=== PATIENT | male | born 1990 | race Caucasian/White ===

== ENCOUNTER 2021-03-04 17:06 | Inpatient (IN) | payer SELFPAY ==
[~2021-03-04] VITALS: Ht 175.3 cm; Wt 77.1 kg
[2021-03-04] MEDS ORDERED: SODIUM CHLORIDE 0.9% 1000ML 1,000 ML IV STA (17:32)
[2021-03-04] MEDS ORDERED: ONDANSETRON HCL INJ 2MG/ML 2ML 2 MG/ML VIAL IV STA (17:32)
[2021-03-04] MEDS ORDERED: Morphine 4mg Syringe 4 MG/ML INJ IV STA (17:32)
[2021-03-04 17:54] LABS: BASOPHILS % 0.2 % (0.0-1.0); EOSINOPHILS # (AUTO) 0.1 (0.0-0.4); EOSINOPHILS % 0.4 % (0.0-6.0); HEMATOCRIT 44.7 % (38.2-49.6); HEMOGLOBIN 15.6 g/dL (14.0-18.0); LYMPHOCYTES # (AUTO) 1.3 (1.0-3.2); LYMPHOCYTES % 5.2 % (18.0-39.1); MEAN CORPUSCULAR HEMOGLOBIN 30.9 pg (28-32); MEAN CORPUSCULAR HGB CONC 34.9 g/dL (31-35); MEAN CORPUSCULAR VOLUME 88.5 fL (81-99); MONOCYTES % 7.9 % (4.4-11.3); NEUTROPHILS % 85.5 % (38.7-80.0); PLATELET COUNT 201 x10e3/uL (140-360); RED BLOOD COUNT 5.05 x10e6/uL (4.3-5.7); RED CELL DISTRIBUTION WIDTH 12.1 % (11.7-14.4)
[2021-03-04] MEDS: PIPERACILLIN/TAZOBACTAM 3.375 GM in SODIUM CHLORIDE 0.9% 50ML 50 ML IV SCH (18:13)
[2021-03-04 18:15] LABS: ALBUMIN 3.7 g/dL (3.5-5.0); ALBUMIN/GLOBULIN RATIO 0.9 (0.8-2.0); ANION GAP 19.3 mmol/L (8-16); CALCIUM 9.8 mg/dL (8.4-10.2); CREATININE, SERUM 1.29 mg/dL (0.72-1.25); POTASSIUM 4.3 mmol/L (3.5-5.1)
[2021-03-04] MEDS ORDERED: ACETAMINOPHEN 325 MG TAB ONE (18:25)
[2021-03-04] MEDS ORDERED: ACETAMINOPHEN 325 MG TAB PO ONE (18:30)
[2021-03-04 20:00] VITALS: BP 140/100
[2021-03-04] MEDS: Morphine 4mg Syringe 4 MG/ML INJ IV PRN (20:20)
[2021-03-04] MEDS: ONDANSETRON HCL INJ 2MG/ML 2ML 2 MG/ML VIAL IV PRN (20:21)
[2021-03-04] MEDS: SODIUM CHLORIDE 0.9% 1000ML 1,000 ML IV SCH (20:21)
[2021-03-04 21:25] VITALS: BP 131/98
[2021-03-04] MEDS ORDERED: SODIUM CHLORIDE 0.9% 50ML 50 ML ONE (22:50)
[2021-03-04] MEDS ORDERED: IOPAMIDOL 370 MG/ML 200 ML INFUS..BTL INJ ONE (22:51)
[2021-03-05] VITALS: BP 140/100
[2021-03-05] MEDS: PIPERACILLIN/TAZOBACTAM 3.375 GM in SODIUM CHLORIDE 0.9% 50ML 50 ML IV SCH ×4 (01:00→18:14)
[2021-03-05] MEDS: Morphine 4mg Syringe 4 MG/ML INJ IV PRN (02:05)
[2021-03-05] MEDS: ONDANSETRON HCL INJ 2MG/ML 2ML 2 MG/ML VIAL IV PRN (02:06)
[2021-03-05] MEDS: SODIUM CHLORIDE 0.9% 1000ML 1,000 ML IV SCH ×3 (02:15→18:15)
[2021-03-05] MEDS ORDERED: ADDERALL 30 MG30 MG PO (04:41)
[2021-03-05] MEDS ORDERED: ACETAMINOPHEN 1000 MG/100 ML IV PRN (04:45)
[2021-03-05 04:48] LABS: BASOPHILS % 0.1 % (0.0-1.0); HEMOGLOBIN 13.3 g/dL (14.0-18.0); LYMPHOCYTES # (AUTO) 1.2 (1.0-3.2); MEAN CORPUSCULAR HEMOGLOBIN 30.6 pg (28-32); MEAN CORPUSCULAR HGB CONC 34.1 g/dL (31-35); MEAN CORPUSCULAR VOLUME 89.7 fL (81-99); MONOCYTES # (AUTO) 1.5 (0.2-0.8); MONOCYTES % 8.9 % (4.4-11.3); NEUTROPHILS # (AUTO) 13.7 (2.1-6.9); NEUTROPHILS % 83.1 % (38.7-80.0); PLATELET COUNT 151 x10e3/uL (140-360); RED BLOOD COUNT 4.35 x10e6/uL (4.3-5.7); RED CELL DISTRIBUTION WIDTH 11.9 % (11.7-14.4)
[2021-03-05 05:14] LABS: ALBUMIN 2.9 g/dL (3.5-5.0); ALBUMIN/GLOBULIN RATIO 0.7 (0.8-2.0); CALCIUM 9.3 mg/dL (8.4-10.2); CREATININE, SERUM 1.09 mg/dL (0.72-1.25)
[2021-03-05] MEDS: METRONIDAZOLE 500MG/NS 100ML 100 ML IV SCH ×4 (06:04→18:14)
[2021-03-05 08:00] VITALS: BP 135/95
[2021-03-05 08:09] VITALS: BP 140/100
[2021-03-05] MEDS ORDERED: BUPIVACAINE 0.25% 30ML SDV ONE (08:35)
[2021-03-05] MEDS ORDERED: FENTANYL CITRATE/PF 100MCG/2 ML INJ ONE ×2 (11:35→13:12)
[2021-03-05 11:54] VITALS: BP 140/97
[2021-03-05] MEDS ORDERED: ATROPINE SULFATE 1 MG/ML VIAL ONE (13:12)
[2021-03-05] MEDS ORDERED: ROCURONIUM BROMIDE 10 MG/ML 5ML VIAL IV ONE (13:12)
[2021-03-05] MEDS ORDERED: SEVOFLURANE INHAL SOLN 250 ML PEN BTL ONE (13:12)
[2021-03-05] MEDS ORDERED: KETOROLAC TROMETHAMINE 30 MG/ML VIAL ONE (13:12)
[2021-03-05] MEDS ORDERED: POVIDONE IODINE 0.05% 0.05 % ML PO ONE (13:12)
[2021-03-05] MEDS ORDERED: NEOSTIGMINE 1 MG/ML 10ML VIAL ONE (13:12)
[2021-03-05] MEDS ORDERED: PROPOFOL IV EMULSION 10 MG/ML 20 ML VIAL ONE (13:12)
[2021-03-05] MEDS ORDERED: DEXAMETHASONE SOD PHOS INJ 4 MG/ML SDV ONE (13:12)
[2021-03-05] MEDS ORDERED: ONDANSETRON HCL INJ 2MG/ML 2ML 2 MG/ML VIAL ONE (13:12)
[2021-03-05] MEDS ORDERED: LIDOCAINE HCL 2% LOCAL INJ 5 ML SDV VIAL INJ ONE (13:12)
[2021-03-05] MEDS ORDERED: MIDAZOLAM HCL 2 MG/2 ML VIAL ONE (13:12)
[2021-03-05 15:40] VITALS: BP 137/97
[2021-03-05 20:00] VITALS: BP 138/97
[2021-03-05] MEDS: KETOROLAC TROMETHAMINE 30 MG/ML VIAL IV PRN (21:42)
[2021-03-06] VITALS (7 sets, daily range): BP systolic 122–146; BP diastolic 81–105
[2021-03-06] MEDS: SODIUM CHLORIDE 0.9% 1000ML 1,000 ML IV SCH ×3 (00:33→21:42)
[2021-03-06] MEDS: PIPERACILLIN/TAZOBACTAM 3.375 GM in SODIUM CHLORIDE 0.9% 50ML 50 ML IV SCH ×5 (00:45→23:54)
[2021-03-06] MEDS: Morphine 4mg Syringe 4 MG/ML INJ IV PRN ×5 (01:22→23:54)
[2021-03-06] MEDS: ONDANSETRON HCL INJ 2MG/ML 2ML 2 MG/ML VIAL IV PRN ×3 (01:22→15:10)
[2021-03-06] MEDS: METRONIDAZOLE 500MG/NS 100ML 100 ML IV SCH ×5 (05:47→23:54)
[2021-03-06 07:17] LABS: BASOPHILS % 0.1 % (0.0-1.0); HEMATOCRIT 31.7 % (38.2-49.6); HEMOGLOBIN 10.9 g/dL (14.0-18.0); LYMPHOCYTES # (AUTO) 0.7 (1.0-3.2); LYMPHOCYTES % 7.7 % (18.0-39.1); MEAN CORPUSCULAR HEMOGLOBIN 30.3 pg (28-32); MEAN CORPUSCULAR HGB CONC 34.4 g/dL (31-35); MEAN CORPUSCULAR VOLUME 88.1 fL (81-99); MONOCYTES # (AUTO) 0.8 (0.2-0.8); MONOCYTES % 8.4 % (4.4-11.3); NEUTROPHILS % 83.3 % (38.7-80.0); PLATELET COUNT 155 x10e3/uL (140-360); RED CELL DISTRIBUTION WIDTH 11.9 % (11.7-14.4)
[2021-03-06 07:55] LABS: ANION GAP 13.1 mmol/L (8-16); CALCIUM 8.7 mg/dL (8.4-10.2); CREATININE, SERUM 0.82 mg/dL (0.72-1.25); POTASSIUM 4.1 mmol/L (3.5-5.1)
[2021-03-06] MEDS: BISACODYL 10 MG SUPP PR SCH (22:29)
[2021-03-07] VITALS (7 sets, daily range): BP systolic 139–163; BP diastolic 100–106
[2021-03-07] MEDS: PIPERACILLIN/TAZOBACTAM 3.375 GM in SODIUM CHLORIDE 0.9% 50ML 50 ML IV SCH ×3 (05:56→18:04)
[2021-03-07] MEDS: METRONIDAZOLE 500MG/NS 100ML 100 ML IV SCH ×3 (05:56→18:39)
[2021-03-07] MEDS: SODIUM CHLORIDE 0.9% 1000ML 1,000 ML IV SCH ×2 (05:56→16:50)
[2021-03-07] MEDS: BISACODYL 10 MG SUPP PR SCH (08:00)
[2021-03-07] MEDS: ONDANSETRON HCL INJ 2MG/ML 2ML 2 MG/ML VIAL IV PRN (08:23)
[2021-03-07] MEDS: Morphine 4mg Syringe 4 MG/ML INJ IV PRN ×2 (08:23→12:30)
[2021-03-07 09:35] LABS: BASOPHILS % 0.4 % (0.0-1.0); EOSINOPHILS # (AUTO) 0.1 (0.0-0.4); EOSINOPHILS % 0.7 % (0.0-6.0); HEMATOCRIT 32.9 % (38.2-49.6); HEMOGLOBIN 11.1 g/dL (14.0-18.0); LYMPHOCYTES # (AUTO) 0.9 (1.0-3.2); LYMPHOCYTES % 12.6 % (18.0-39.1); MEAN CORPUSCULAR HEMOGLOBIN 30.3 pg (28-32); MEAN CORPUSCULAR HGB CONC 33.7 g/dL (31-35); MEAN CORPUSCULAR VOLUME 89.9 fL (81-99); MONOCYTES # (AUTO) 0.6 (0.2-0.8); MONOCYTES % 9.2 % (4.4-11.3); NEUTROPHILS # (AUTO) 5.3 (2.1-6.9); NEUTROPHILS % 76.4 % (38.7-80.0); PLATELET COUNT 159 x10e3/uL (140-360); RED BLOOD COUNT 3.66 x10e6/uL (4.3-5.7); RED CELL DISTRIBUTION WIDTH 11.8 % (11.7-14.4)
[2021-03-07 09:53] LABS: ANION GAP 13.7 mmol/L (8-16); CALCIUM 8.3 mg/dL (8.4-10.2); CREATININE, SERUM 0.76 mg/dL (0.72-1.25); POTASSIUM 3.7 mmol/L (3.5-5.1)
[2021-03-07] MEDS: HYDRALAZINE HCL 20 MG/ML VIAL IV PRN (13:01)
[2021-03-07] MEDS ORDERED: HYDROMORPHONE 1MG/1ML INJ IV PRN (13:45)
[2021-03-07] MEDS: HYDROCODONE/APAP 7.5MG-325MG 1 EA TAB PO PRN ×2 (16:45→21:21)
[2021-03-07] MEDS ORDERED: ACETAMINOPHEN 325 MG TAB PO PRN (16:45)
[2021-03-07] MEDS: KETOROLAC TROMETHAMINE 30 MG/ML VIAL IV PRN (18:11)
[2021-03-07] MEDS: DIPHENHYDRAMINE HCL 25 MG CAP PO PRN (22:23)
[2021-03-08] VITALS: BP 140/105
[2021-03-08] MEDS: PIPERACILLIN/TAZOBACTAM 3.375 GM in SODIUM CHLORIDE 0.9% 50ML 50 ML IV SCH ×5 (00:07→23:40)
[2021-03-08] MEDS: METRONIDAZOLE 500MG/NS 100ML 100 ML IV SCH ×4 (00:07→18:10)
[2021-03-08] MEDS: HYDRALAZINE HCL 20 MG/ML VIAL IV PRN ×2 (00:34→08:35)
[2021-03-08 04:00] VITALS: BP 153/100
[2021-03-08 07:17] LABS: BASOPHILS % 0.4 % (0.0-1.0); EOSINOPHILS # (AUTO) 0.1 (0.0-0.4); EOSINOPHILS % 0.8 % (0.0-6.0); HEMATOCRIT 35.4 % (38.2-49.6); HEMOGLOBIN 12.2 g/dL (14.0-18.0); LYMPHOCYTES # (AUTO) 0.9 (1.0-3.2); LYMPHOCYTES % 12.3 % (18.0-39.1); MEAN CORPUSCULAR HEMOGLOBIN 30.3 pg (28-32); MEAN CORPUSCULAR HGB CONC 34.5 g/dL (31-35); MEAN CORPUSCULAR VOLUME 87.8 fL (81-99); MONOCYTES # (AUTO) 0.7 (0.2-0.8); MONOCYTES % 9.1 % (4.4-11.3); NEUTROPHILS # (AUTO) 5.8 (2.1-6.9); NEUTROPHILS % 76.7 % (38.7-80.0); PLATELET COUNT 203 x10e3/uL (140-360); RED BLOOD COUNT 4.03 x10e6/uL (4.3-5.7); RED CELL DISTRIBUTION WIDTH 11.7 % (11.7-14.4)
[2021-03-08 07:26] VITALS: BP 155/110
[2021-03-08 07:44] LABS: ANION GAP 12.4 mmol/L (8-16); CREATININE, SERUM 0.69 mg/dL (0.72-1.25); POTASSIUM 3.4 mmol/L (3.5-5.1)
[2021-03-08] MEDS: KETOROLAC TROMETHAMINE 30 MG/ML VIAL IV PRN (08:35)
[2021-03-08] MEDS: ONDANSETRON HCL INJ 2MG/ML 2ML 2 MG/ML VIAL IV PRN (08:35)
[2021-03-08] MEDS: HYDROCODONE/APAP 7.5MG-325MG 1 EA TAB PO PRN ×2 (12:19→19:53)
[2021-03-08] MEDS: DIPHENHYDRAMINE HCL 25 MG CAP PO PRN ×2 (12:19→19:53)
[2021-03-08 20:00] VITALS: BP 134/95
[2021-03-08 21:46] VITALS: BP 134/96
[2021-03-09] VITALS: BP 140/92
[2021-03-09] MEDS: METRONIDAZOLE 500MG/NS 100ML 100 ML IV SCH ×2 (00:09→06:24)
[2021-03-09 04:00] VITALS: BP 127/95
[2021-03-09] MEDS: HYDROCODONE/APAP 7.5MG-325MG 1 EA TAB PO PRN (05:55)
[2021-03-09] MEDS: PIPERACILLIN/TAZOBACTAM 3.375 GM in SODIUM CHLORIDE 0.9% 50ML 50 ML IV SCH (05:55)
[2021-03-09] MEDS: DIPHENHYDRAMINE HCL 25 MG CAP PO PRN (05:55)
[2021-03-09 08:19] VITALS: BP 139/102
[2021-03-09] MEDS: HYDRALAZINE HCL 20 MG/ML VIAL IV PRN (08:24)
[2021-03-09 08:48] VITALS: BP 139/102
[2021-03-09] MEDS ORDERED: tyle (10:52)
[2021-03-09] MEDS ORDERED: TYLENOL PO (10:56)
[2021-03-09] MEDS ORDERED: FLAGYL375 MG PO (10:58)
[2021-03-09] MEDS ORDERED: LEVOFLOXACIN250 MG PO (10:59)
== END 2021-03-09 11:15 | disposition home or self-care (01) | DRG 853 ==
LOC: ER 17:32 → ERHOLD 18:36 → MED/SURG 21:23
PROVIDERS: ADMIT Internal Medicine; ATTEND Internal Medicine
PROC: 0D9J40Z Drainage of Appendix with Drainage Device, Percutaneous Endoscopic Approach (ICD-10-PCS; 2021-03-05)
PROC: 0DTJ4ZZ Resection of Appendix, Percutaneous Endoscopic Approach (ICD-10-PCS; principal; 2021-03-05 09:00)
DX: A41.9 Sepsis, unspecified organism (principal); K35.33 Acute appendicitis with perforation, localized peritonitis, and gangrene, with abscess; Z20.822 Contact with and (suspected) exposure to COVID-19; I97.3 Postprocedural hypertension; D64.9 Anemia, unspecified; R65.20 Severe sepsis without septic shock
CPT/HCPCS: 36415; 74177; 80048; 80053; 83605; 85025; 87040; 88304; 93005; 94799; 96361; 99285; C1766; J0360; J0461; J1100; J1885; J2001; J2250; J2270; J2405; J2543; J2710; J3010; J7030; Q9967; U0002

== ENCOUNTER 2021-08-04 20:08 | Emergency (ER) | payer OTHER ==
[~2021-08-04] VITALS: Ht 175.3 cm; Wt 95.3 kg
[~2021-08-04 20:08] MED LIST: ADDERALL 30 MG30 MG PO; FLAGYL375 MG PO; LEVOFLOXACIN250 MG PO; TYLENOL PO; tyle
[2021-08-04] MEDS ORDERED: KETOROLAC TROMETHAMINE 30 MG/ML VIAL IM STA (20:19)
[2021-08-04] MEDS ORDERED: LIDOCAINE 4% PATCH TP STA (20:27)
[2021-08-04] MEDS ORDERED: HYDROCODONE/APAP 5MG-325MG TAB PO ONE (20:30)
[2021-08-04] MEDS ORDERED: MORPHINE SULFAT15 MG PO (22:31)
[2021-08-04 22:44] VITALS: BP 154/116
== END 2021-08-04 22:45 | disposition home or self-care (01) ==
LOC: ER 20:17
DX: S32.010A Wedge compression fracture of first lumbar vertebra, initial encounter for closed fracture (principal); W18.31XA Fall on same level due to stepping on an object, initial encounter; Y92.89 Other specified places as the place of occurrence of the external cause; F90.9 Attention-deficit hyperactivity disorder, unspecified type
CPT/HCPCS: 72131; 72192; 99283; J1885